=== PATIENT | male | born 1945 | race Caucasian/White ===

== ENCOUNTER → 2019-07-01 11:23 | Outpatient (CLI) | payer OTHER, SELFPAY ==
--- NOTE | 2019-07-01 | DI.US.S_ITS ---
PROCEDURE: US ABD AORTA ANEURYSM SCREEN INDICATIONS: SCREENING FOR CARDIOVASCULAR DISORDERS TECHNIQUE: Real time scanning was performed of the aorta and iliac arteries, with image documentation. COMPARISON: None. FINDINGS: Aorta: Proximal aortic diameter measures 2.5 cm. Mid-aorta measures 1.9 cm. Distal aortic diameter is 1.9 cm. Iliac arteries: Right common iliac artery measures 1.2 cm. Left common iliac artery measures 1.1 cm. IMPRESSION: Negative for aneurysm. Dictated by: Js Walls M.D. on 07/01/2019 at 11:07 Approved by: Js Walls M.D. on 07/01/2019 at 11:08
== END ==
PROVIDERS: PCP Nurse Practitioner Family; Visit Provider Nurse Practitioner Family
DX: Z13.6 Encounter for screening for cardiovascular disorders (principal)
CPT/HCPCS: 76706

== ENCOUNTER → 2022-10-24 11:45 | Outpatient (CLI) | payer OTHER, SELFPAY ==
--- NOTE | 2022-10-24 | DI.RAD.S_ITS ---
PROCEDURE: XR RIBS RT MIN 3V W CXR 1V INDICATIONS: RIGHT SIDED ANTERIOR RIB PAIN AT T5-6 TECHNIQUE: 2 views of the right ribs were acquired, along with a single view chest. COMPARISON: None. FINDINGS: Surgical changes and devices: None. Bones and chest wall: No fractures or dislocations. No suspicious bony lesions. Overlying soft tissues appear unremarkable. Lungs and pleura: No pleural effusions or pneumothorax. Lungs appear clear. Mediastinum: Mediastinal contours appear normal. Heart size is normal. IMPRESSION: No displaced rib fracture. No acute cardiopulmonary disease process. Dictated by: Dora El MD, PhD on 10/24/2022 at 13:47 Approved by: Dora El MD, PhD on 10/24/2022 at 13:48
== END ==
PROVIDERS: PCP Internal Medicine; Referring Provider Internal Medicine; Visit Provider Internal Medicine
DX: R07.81 Pleurodynia (principal)
CPT/HCPCS: 71101

== ENCOUNTER → 2024-07-18 14:27 | Outpatient (CLI) | payer OTHER, SELFPAY | PROVIDERS: PCP Internal Medicine; Referring Provider Internal Medicine; Visit Provider Internal Medicine | DX: R06.09 Other forms of dyspnea (principal); Z87.891 Personal history of nicotine dependence; R94.2 Abnormal results of pulmonary function studies | CPT/HCPCS: 94060; 94726; 94729 ==

== ENCOUNTER → 2024-07-25 15:59 | Outpatient (CLI) | payer OTHER, SELFPAY ==
--- NOTE | 2024-07-25 16:00 | DI.ECHO.S_ITS ---
[place] [facility]+ [facility] : : [address] : : [place] : : [id number] : : Phone: [phone] Echocardiogram Report + + :Name: RADHA MANRIQUEZ Study Date: 07/25/2024 Height: 70 in : :[facility] ReadingLocation: Weight: 204 lb : : Gender: Male BSA: 2.1 m2 : :: 1945 Age: 79 yrs BP: 142/84 mmHg: :Reason For Study: DYSPNEA : :Ordering Physician: MITALI, : :JOSE Performed By: Akash Delgado : :Referring: JOSE JASMINE : + + Interpretation Summary This is a technicall difficult study characterized by limited endocardial visualization on apical views. Next time I recommend [employer] echocontrast. Normal sinus rhythm. Normal LV size, wall thickness, wall motion and LV systolic function. EF is 50-55%. Stage I diastolic dysfunction. Normal chamber sizes. No valve abnormalities. No prior study available for comparison. Procedure: A two-dimensional transthoracic echocardiogram with color flow and Doppler was performed. The study quality was technically adequate. There is no prior echocardiogram noted for this patient. The patient was in sinus rhythm with heart rates between 63-74 bpm during the exam. Left Ventricle: The left ventricle is normal in size and wall thickness. The ejection fraction is estimated to be 50-55%. Right Ventricle: The right ventricle is normal size. The right ventricular systolic function is normal. Atria: The left atrial size is normal. Right atrial size is normal. The interatrial septum grossly appears intact with no obvious evidence for an atrial septal defect. Mitral Valve: There is no mitral valve stenosis. There is trace mitral regurgitation. Aortic Valve: The aortic valve is trileaflet. There is no aortic valve stenosis. No aortic regurgitation is present. Tricuspid Valve: The tricuspid valve is normal. There is no tricuspid stenosis. There is mild tricuspid regurgitation. Pulmonary artery pressures cannot be estimated because of the lack of a measurable TR jet velocity. Pulmonic Valve: The pulmonic valve is not well seen, but is grossly normal. There is no pulmonic valvular stenosis. There is trace pulmonic regurgitation. Great Vessels: The aortic root is normal size. The ascending aorta could not be visualized. The inferior vena cava was not visualized. Pericardium/ Pleura There is no pericardial effusion. There is no pleural effusion. MMode/2D Measurements & Calculations LVIDd: 4.4 cm LVOT diam: 1.9 cm LVIDs: 3.1 cm Ao root diam: 2.9 cm FS: 28.6 % IVSd: 1.0 cm LVPWd: 0.97 cm LV valdez. diameter/BSA (cm/m^2): 2.1 LV sys. diameter/BSA (cm/m^2): 1.5 LA A2 area: 15.3 cm2 RA long axis: 4.4 cm LA A4 area: 13.9 cm2 RA area: 11.6 cm2 LA length (vol): 4.2 cm RA vol: 26.2 ml LA vol: 42.5 ml RA : 12.5 ml/m2 LA vol index: 20.2 ml/m2 IVC diam: 2.0 cm RVD1 (basal): 3.5 cm RVD2 (mid): 3.5 cm TAPSE: 1.8 cm Doppler Measurements & Calculations Ao V2 max: 161.6 cm/sec LVOT Max Marco Antonio: 124.9 cm/sec Ao V2 mean: 97.4 cm/sec LV V1 max P.2 mmHg Ao max P.4 mmHg LV V1 VTI: 25.5 cm Ao mean P.5 mmHg AMAURY(I,D): 2.6 cm2 Ao V2 VTI: 28.9 cm AMAURY(V,D): 2.3 cm2 sev ratio: 0.88 AMAURY indexed to BSA (cm^2/m^2): 1.2 MV E max marco antonio: 53.3 cm/sec TR max marco antonio: 237.5 cm/sec MV A max marco antonio: 65.1 cm/sec TR max P.6 mmHg MV E/A: 0.82 PA V2 max: 141.0 cm/sec Med Peak E' Marco Antonio: 5.0 cm/sec PA V2 mean: 96.1 cm/sec E/E' med: 10.6 PA mean P.2 mmHg Lat Peak E' Marco Antonio: 7.8 cm/sec PA pr(Accel): 19.1 mmHg E/E' lat: 6.8 E/e' average: 8.7 MV dec time: 0.23 sec SV(LVOT): 75.5 ml Electronically signed by: Tyra Cardoza M.D. on Reading Physician:07/26/2024 06:00 AM
== END ==
PROVIDERS: PCP Internal Medicine; Referring Provider Internal Medicine; Visit Provider Internal Medicine
DX: I07.1 Rheumatic tricuspid insufficiency (principal); R06.09 Other forms of dyspnea; E78.5 Hyperlipidemia, unspecified
CPT/HCPCS: 93306

== ENCOUNTER → 2025-03-13 08:27 | Outpatient (CLI) | payer OTHER, SELFPAY ==
--- NOTE | 2025-03-13 08:28 | DI.US.S_ITS ---
PROCEDURE: US ABDOMEN COMPLETE INDICATIONS: ELEVATED ALKALINE PHOSPHATATE TECHNIQUE: Real-time scanning was performed of the abdominal and retroperitoneal organs, with image documentation. COMPARISON: None. FINDINGS: Liver: Liver is borderline enlarged 17 cm in CC dimension of the right lobe. Iclc-[id number] diffuse increased coarsened echotexture of the liver commonly hepatic steatosis and or intrinsic hepatic disease. Color Doppler demonstrates main portal vein with normal hepatopetal flow. Gallbladder: Cholelithiasis with at least 2 mobile echogenic shadowing gallstones. No ultrasound evidence of gallbladder wall thickening or pericholecystic fluid. Sonographic Lamar sign is noted as negative. Biliary ducts: Intrahepatic bile ducts are non-dilated. Extrahepatic bile duct caliber measures 6 mm. Normal is 6-7 mm or less in diameter. Pancreas: Pancreas not visualized due to overlying bowel gas. Spleen: Spleen is normal in size with some echogenic foci commonly calcified granulomata.. Kidneys: Kidneys are normal in size and echotexture. Possible ptotic, rotated kidneys. Right kidney measures 10.3 cm long; left kidney measures 11.3 cm long. Left echogenic focus inferior pole 9 mm x 7 mm x 5 mm suspected nonobstructing calculus. Left inferior pole simple cyst 2.2 x 2.0 x 1.8 cm. No hydronephrosis Aorta: Visualized aorta is normal in caliber at less than 3 cm. Iliacs: Proximal common iliac arteries are normal in caliber at less than 2.5 cm. IVC: Not well visualized per notes Miscellaneous: No free abdominal fluid. IMPRESSION: Cholelithiasis without ultrasound evidence of cholecystitis. Common bile duct 6 mm within normal limits. Borderline mild hepatomegaly with increased echogenicity of the liver commonly hepatic steatosis or intrinsic hepatic disease. 9 mm nonobstructing renal calculus left kidney. 2.2 cm left renal cyst. If symptoms persist or worsen, or there is high clinical suspicion of abdominal abnormality, CT could be performed. Dictated by: Rubén Mora M.D. on 03/13/2025 at 11:01 Approved by: Rubén Mora M.D. on 03/13/2025 at 11:26
== END ==
PROVIDERS: PCP Registered Nurse; Referring Provider Registered Nurse; Visit Provider Registered Nurse
DX: K80.20 Calculus of gallbladder without cholecystitis without obstruction (principal); N28.1 Cyst of kidney, acquired; N20.0 Calculus of kidney; R74.8 Abnormal levels of other serum enzymes
CPT/HCPCS: 76700